=== PATIENT | male | born 1955 | race Caucasian/White ===

== ENCOUNTER 2021-09-17 07:17 | Emergency (ER) | payer OTHER ==
[2021-09-17] MEDS ORDERED: Quelicin Fliptop 200 MG/10 ML IV ONE ×2 (07:18)
[2021-09-17 07:32] LABS: A-aADO2 629; ABG HEMOGLOBIN 13.6; ABG POTASSIUM 4.2 (3.5-5.1); ARTERIAL BLD GAS O2 SATURATION 80.1 % (95-100); ARTERIAL BLOOD GAS BASE EXCESS -5.5 (-2.0-2.0); ARTERIAL BLOOD GAS FIO2 100 %; ARTERIAL BLOOD GAS PCO2 29 mmHg (35-45); CARBOXYHEMOGLOBIN 1.1 % THgb (0.0-6.9); HGB O2 SAT 78.7 g/dF (94-100); Methhemoglobin 0.6 % (1.4-1.5)
[2021-09-17 07:33] LABS: ABG SITE LEFT RADIAL; ALLEN TEST OK? YES; ARTERIAL BLOOD GAS PO2 48 mmHg (75-100)
--- NOTE | 2021-09-17 07:55 | ERPHSYRPT ---
- History of Present Illness Time Seen by Provider: 09/17/21 07:29 Source: patient, EMS Exam Limitations: no limitations Patient Subjective Stated Complaint: Pt diagnosed with covid yesterday and today he was severely SOB and called the medics and his O2 was 59% on room air Triage Nursing Assessment: Pt was brought to the ER by EMS, hypoxic, hype rtensive, tachycardic, tachypnic, denies pain, was 59% on room air and placed on non rebreather and went to 72% and now placed on high flow and is at 81%, pt BP has now went down to 125/69, pulses bounding, pt is wheezing and rattling, skin n/w/d, pt looks better and appears more comfortable than when he came in Timing/Duration: day(s) (1), worse Activities at Onset: none Possible Cause: no prior episodes Modifying Factors: Improves With: deep breath, exertion (worse) Associated Symptoms: denies symptoms Allergies/Adverse Reactions: No Known Drug Allergies Allergy (Verified 09/17/21 07:36) Home Medications: Allopurinol 100 mg [Zyloprim 100 mg] 100 mg PO BID 09/17/21 [History] Amlodipine Besylate 5 mg [Norvasc 5 mg] 5 mg PO BID 09/17/21 [History] Lisinopril 5 mg [Zestril 5 MG] 5 mg PO DAILY 09/17/21 [History] Metoprolol Tartrate 50 mg [Lopressor 50 MG] 50 mg PO BID 09/17/21 [Histo ry] Tamsulosin HCl 0.4 mg [Flomax 0.4 MG] 0.4 mg PO DAILY 09/17/21 [History] Travel Risk - International Travel Have you traveled outside of the country in past 3 weeks: No - Coronavirus Screening Are you exhibiting any of the following symptoms?: No Symptoms: Fever, Cough: New Onset, Shortness of Breath - Vaccine Status Have you recieved a Covid-19 vaccination: No - Review of Systems Constitutional: Fatigue, Malaise Eyes: No Symptoms Ears, Nose, & Throat: No Symptoms Respiratory: Cough, Dyspnea Cardiac: No Symptoms Abdominal/Gastrointestinal: No Symptoms Genitourinary Symptoms: No Symptoms Musculoskeletal: No Symptoms Skin: No Symptoms Neurological: No Symptoms Psychological: No Symptoms Endocrine: No Symptoms Hematologic/Lymphatic: No Symptoms Immunological/Allergic: No Symptoms All Other Systems: Reviewed and Negative - Past Medical History Pertinent Past Medical History: Yes Neurological History: No Pertinent History ENT History: No Pertinent History Cardiac History: Hypertension Respiratory History: No Pertinent History Endocrine Medical History: No Pertinent History Musculoskeletal History: No Pertinent History GI Medical History: No Pertinent History History: No Pertinent History Psycho-Social History: No Pertinent History Male Reproductive Disorders: No Pertinent History Other Medical History: gout - Past Surgical History Past Surgical History: Yes Neuro Surgical History: No Pertinent History Cardiac: No Pertinent History Respiratory: No Pertinent History Gastrointestinal: No Pertinent History Genitourinary: No Pertinent History Musculoskeletal: No Pertinent History, Joint Replacement Male Surgical History: No Pertinent History Other Surgical History: cervical fusion, jose manuel knee replacement - Social History Smoking Status: Never smoker Exposure to second hand smoke: No Drug Use: none Patient Lives Alone: No Significant Family History: no pertinent family hx - Nursing Vital Signs Nursing Vital Signs: Initial Vital Signs Temperature 99.3 F 09/17/21 07:20 Pulse Rate 91 H 09/17/21 07:20 Respiratory Rate 31 H 09/17/21 07:20 Blood Pressure 204/122 09/17/21 07:20 O2 Sat by Pulse Oximetry 72 L 09/17/21 07:20 Pain Scale Pain Intensity 0 - Physical Exam General Appearance: moderate distress, obese Eye Exam: PERRL/EOMI Ears, Nose, Throat Exam: hearing grossly normal, normal ENT inspection, normal pharynx Neck Exam: normal inspection, non-tender, supple, full range of motion Respiratory Exam: diminished breath sounds, crackles/rales, rhonchi, wheezing Cardiovascular/Chest Exam: tachycardia, irregular Abdominal/Gastrointestinal Exam: soft, normal bowel sounds, distention Rectal Exam: deferred Extremity Exam: non-tender Neurologic Exam: alert, oriented x 3, cooperative Skin Exam: normal color, warm, dry SpO2 Interpretation: hypoxic, ABG ordered, O2 applied SpO2: 72 O2 Delivery: BiPap/CPAP Procedures - Intubation Intubation Indications: respiratory distress Intubation Method: orotracheal Tube Size (cm): 8.0 Medications: Fentanyl, Midazolam (Versed), Succinylcholine, Nimbex Endotracheal Tube Confirmation: bilateral breath sounds, positive end tidal CO2, good rise & fall of chest, stable or inc of O2 sat Intubation Complications: no complications Performed By: Biophysics Professor Post Intubation Xray: Yes Progress/X-ray Impression: 09/17/21 17:05 ETT good position. OG tube good position. - Course Nursing assessment & vital signs reviewed: Yes EKG Interpreted by Me: A-fib, NORMAL AXIS, NORMAL INTERVALS, NORMAL QRS, Other (REpeat EKG after tx, sinus tach at 106, no ischemia.) - Radiology Exams Chest X-ray Interpretation: Reviewed by me, Pneumonia (bilateral airspace disease) Ordered Tests: Active Orders 24 hr Category Date Time Status EKG-ER Only STAT Care 09/17/21 07:49 Completed [place] [Catheter-[place]] STAT Care 09/17/21 14:47 Completed IV Insertion STAT Care 09/17/21 07:52 Completed IV Insertion-2nd Peripheral STAT Care 09/17/21 07:52 Completed CHEST 1 VIEW (PORTABLE) Stat Exams 09/17/21 08:12 Completed CHEST 1 VIEW (PORTABLE) Stat Exams 09/17/21 14:24 Completed ABG [ARTERIAL BLOOD GASES] Routine Lab 09/17/21 15:00 Completed ABG [ARTERIAL BLOOD GASES] Routine Lab 09/17/21 22:00 Completed ABG [ARTERIAL BLOOD GASES] Stat Lab 09/17/21 07:32 Completed ABG [ARTERIAL BLOOD GASES] Stat Lab 09/17/21 17:56 Completed ABG [ARTERIAL BLOOD GASES] Urgent Lab 09/17/21 12:57 Completed BLOOD CULTURE Stat Lab 09/17/21 08:05 Received BMP Stat Lab 09/17/21 17:35 Completed CBC W DIFF Stat Lab 09/17/21 07:45 Completed CMP Stat Lab 09/17/21 08:05 Completed CULTURE,URINE Stat Lab 09/17/21 14:48 Ordered D-DIMER QUANTITATIVE Stat Lab 09/17/21 07:49 Completed Lactic Acid Routine Lab 09/17/21 22:00 Completed Lactic Acid Stat Lab 09/17/21 07:34 Completed Lactic Acid Stat Lab 09/17/21 15:00 Completed Lactic Acid Stat Lab 09/17/21 17:56 Completed Manual Differential NC Stat Lab 09/17/21 07:45 Completed NT PRO BNP Stat Lab 09/17/21 08:05 Completed TROPONIN Q3H Lab 09/17/21 08:05 Completed TROPONIN Q3H Lab 09/17/21 11:38 Completed TROPONIN Q3H Lab 09/17/21 13:40 Completed TROPONIN Q3H Lab 09/17/21 17:35 Completed UA W/RFX UR CULTURE Stat Lab 09/17/21 14:48 Completed BiPap/CPAP STAT RT 09/17/21 08:41 Completed Intubate Patient STAT RT 09/17/21 14:35 Completed Oxygen High Flow per RT 50% RT 09/17/21 07:40 Completed Respiratory Therapy Assessment DAILY RT 09/18/21 07:00 Completed Ventilator Management STAT RT 09/17/21 14:24 Completed Medication Summary Discontinued Medications Generic Name Dose Route Start Last Admin Trade Name Freq PRN Reason Stop Dose Admin Cisatracurium Besylate 20 mg 09/17/21 14:00 Cisatracurium 20 Mg/10 Ml Vial IV 09/17/21 14:01 .STK-MED ONE Dexamethasone Sodium Phosphate 6 mg 09/17/21 08:26 09/17/21 08:37 Dexamethasone Sod Phosphate 10 Mg/Ml IV 09/17/21 08:27 6 mg STAT ONE Administration Dexamethasone Sodium Phosphate Confirm 09/17/21 08:36 Dexamethasone Sod Phosphate 10 Mg/Ml Administered 09/17/21 08:37 Dose 10 mg .ROUTE .STK-MED ONE Diltiazem HCl 15 mg 09/17/21 10:14 09/17/21 10:31 Diltiazem Hcl Iv 5 Mg/Ml Vial IV 09/17/21 10:15 15 mg STAT ONE Administration Diltiazem HCl Confirm 09/17/21 10:29 Diltiazem Hcl Iv 5 Mg/Ml Vial Administered 09/17/21 10:30 Dose 50 mg IV .STK-MED ONE Diltiazem HCl 25 mg 09/17/21 11:20 09/17/21 11:27 Diltiazem Hcl Iv 5 Mg/Ml Vial IV 09/17/21 11:21 25 mg STAT ONE Administration Diltiazem HCl 25 mg 09/17/21 14:55 09/17/21 15:05 Diltiazem 25 Mg/5 Ml Vial IV 09/17/21 14:56 25 mg ONCE ONE Administration Diltiazem HCl Confirm 09/17/21 15:04 Diltiazem Hcl Iv 5 Mg/Ml Vial Administered 09/17/21 15:05 Dose 50 mg IV .STK-MED ONE Enoxaparin Sodium 150 mg 09/17/21 10:19 09/17/21 10:32 Enoxaparin Sodium 150 Mg/Ml Syringe SQ 09/17/21 10:20 150 mg 1XONLY ONE Administration Fentanyl Citrate Confirm 09/17/21 13:50 Fentanyl Citrate 100 Mcg/2 Ml* Vial Administered 09/17/21 13:51 Dose 100 mcg .ROUTE .STK-MED ONE Heparin Sodium (Beef Lung) Confirm 09/17/21 18:22 Heparin 5000 Unit/0.5 Ml Syringe Administered 09/17/21 18:23 Dose 5,000 unit .ROUTE .STK-MED ONE Heparin Sodium (Beef Lung) 1,000 unit 09/17/21 18:30 09/17/21 20:00 Heparin 5000 Unit/0.5 Ml Syringe IV 09/17/21 18:31 1,000 unit STAT ONE Administration Lactated Ringer's 1,000 mls @ 999 mls/hr 09/17/21 08:04 09/17/21 10:00 Lactated Ringers IV 09/17/21 09:04 Infused .Q1H1M ONE Infusion Lactated Ringer's Confirm 09/17/21 08:05 Lactated Ringers Administered 09/17/21 08:06 Dose 1,000 mls @ ud IV .STK-MED ONE Sodium Chloride Confirm 09/17/21 13:46 Sodium Chloride 0.9% 1000 Ml Administered 09/17/21 13:47 Dose 1,000 mls @ ud .ROUTE .STK-MED ONE Midazolam HCl 50 mg/ Sodium 250 mls @ 20.412 mls/hr 09/17/21 13:57 09/17/21 17:01 Chloride IV 10/17/21 13:56 0.02 mg/kg/hr .[id number] PRN 15 mls/hr SEDATION Titration Protocol 0.025 MG/KG/HR Cisatracurium Besylate 200 mg/ 200 mls @ 29.393 mls/hr 09/17/21 13:57 09/17/21 21:14 Dextrose IV 10/17/21 13:56 3 mcg/kg/min .Q6H49M PRN 29.393 mls/hr PARALYSIS Administration Protocol 3 MCG/KG/MIN Fentanyl Citrate 1,500 mcg/ 150 mls @ 16.329 mls/hr 09/17/21 13:57 09/17/21 17:01 Sodium Chloride IV 10/17/21 13:56 0.4 mcg/kg/hr .Q9H12M PRN 6.532 mls/hr PAIN Titration Protocol 1 MCG/KG/HR Diltiazem HCl 100 mls @ 10 mls/hr 09/17/21 14:56 09/17/21 15:05 Cardizem Drip 100 Mg/100 Ml D5w IV 10/17/21 14:55 10 mg/hr .Q10H PRN 10 mls/hr HEART RATE/ A-FIB Administration Protocol 10 MG/HR Acetaminophen 1,000 mg in 100 mls @ 400 mls/hr 09/17/21 14:57 09/17/21 15:00 Ofirmev IV 09/17/21 15:11 400 mls/hr 1HRPRIOR ONE Administration Procainamide HCl 1,500 mg/ 103 mls @ 120 mls/hr 09/17/21 16:00 09/17/21 15:53 Dextrose IV 09/17/21 16:51 120 mls/hr STAT ONE Administration Sodium Chloride 1,000 mls @ 999 mls/hr 09/17/21 18:02 09/17/21 19:04 Sodium Chloride 0.9% 1000 Ml IV 09/17/21 19:02 Infused .Q1H1M STA Infusion Sodium Chloride 1,000 mls @ 999 mls/hr 09/17/21 18:23 09/17/21 19:26 Sodium Chloride 0.9% 1000 Ml IV 09/17/21 19:23 Infused .Q1H1M STA Infusion Sodium Chloride Confirm 09/17/21 18:22 Sodium Chloride 0.9% 500 Ml Administered 09/17/21 18:23 Dose 500 mls @ ud IV .STK-MED ONE Sodium Chloride Confirm 09/17/21 18:22 Sodium Chloride 0.9% 1000 Ml Administered 09/17/21 18:23 Dose 1,000 mls @ ud .ROUTE .STK-MED ONE Norepinephrine/Dextrose 8 mg in 250 mls @ 15 mls/hr 09/17/21 18:30 09/17/21 20:18 Norepinephrine 8 Mg/250 Ml-D5w IV 10/17/21 18:29 12 mcg/min .[id number] PRN 22.5 mls/hr HYPOTENSION Titration Protocol 8 MCG/MIN Sodium Chloride 500 mls @ 500 mls/hr 09/17/21 18:30 09/17/21 20:00 Sodium Chloride 0.9% 500 Ml IV 09/17/21 19:29 500 mls/hr .Q1H ONE Administration Sodium Chloride 1,000 mls @ 150 mls/hr 09/17/21 19:45 09/17/21 19:34 Sodium Chloride 0.9% 1000 Ml IV 10/17/21 19:44 150 mls/hr .Q6H40M AMBER Administration Diltiazem HCl Confirm 09/17/21 15:04 Cardizem Drip 100 Mg/100 Ml D5w Administered 09/17/21 15:05 Dose 100 mls @ ud IV .STK-MED ONE Metoprolol Succinate 100 mg 09/18/21 12:55 09/17/21 12:58 Metoprolol Succinate 100 Mg Tablet.Sa PO 09/18/21 12:56 100 mg DAILY ONE Administration Metoprolol Succinate Confirm 09/17/21 12:58 Metoprolol Succinate 25 Mg Xl Tab Administered 09/17/21 12:59 Dose 100 mg .ROUTE .STK-MED ONE Midazolam HCl 15 mg 09/17/21 14:00 Midazolam Hcl 5 Mg/5 Ml Vial .ROUTE 09/17/21 14:01 .STK-MED ONE Succinylcholine Chloride 2 mg 09/17/21 14:00 Succinylcholine Chloride 200mg/10 Ml Vial .ROUTE 09/17/21 14:01 .STK-MED ONE Lab/Rad Data: Laboratory Result Diagrams 09/17/21 07:45 09/17/21 17:35 Laboratory Results 09/17/21 09/17/21 09/17/21 Range/Units 22:00 17:56 17:35 WBC (4.0-10.5) K/mm3 RBC (4.1-5.6) M/mm3 Hgb (12.5-18.0) gm/dl Hct (42-50) % MCV (78-100) fl MCH (26-32) pg MCHC (32-36) g/dl RDW (11.5-14.0) % Plt Count (150-450) K/mm3 MPV (7.5-11.0) fl Absolute Granulocytes (1.4-6.9) Segmented Neutrophils (36.-66.) % Band Neutrophils (0.0-2.0) % Lymphocytes (Manual) (24-44) % Monocytes (Manual) (0.0-12.0) % Platelet Estimate (NORMAL) RBC Morphology D-Dimer (215-500) ng/mL Puncture Site AL RIGHT RADIAL pCO2 50 H 75 H* (35-45) mmHg pO2 60 L 62 L (75-100) mmHg Base Excess -7.4 L -12.2 L (-2.0-2.0) O2 Saturation 89.8 L 85.1 L (94-100) g/dF ABG pH 7.22 L* 7.03 L* (7.35-7.45) ABG HCO3 20.5 L 19.8 L (22-28) ABG O2 Sat (Measured) 91.9 L 87.2 L (95-100) % Ezequiel Test NOT APPLICABLE YES A-a Gradient 591 557 a/A Ratio 0.09 0.10 Hemoglobin 13.1 12.8 Carboxyhemoglobin 1.1 1.1 (0.0-6.9) % THgb Methemoglobin 1.3 L 1.2 L (1.4-1.5) % Potassium 4.8 5.4 H 5.2 H (3.5-5.1) Temperature 37.0 37.0 C POC O2 Flow Rate 100 100 % Vent Mode PCV+ Vent Rate 18 /MIN Tidal Volume 600 cc PEEP 15 14.0 cmH2O Sodium 129 L (137-145) mmol/L Chloride 95 L (98-107) mmol/L Carbon Dioxide 20 L (22-30) mmol/L Anion Gap 18.6 H (5-15) MEQ/L BUN 25 H (9-20) mg/dL Creatinine 1.94 H (0.66-1.25) mg/dL Estimated GFR 37.1 ML/MIN Glucose 285 H (74-106) mg/dL Lactic Acid 1.8 5.0 H (0.4-2.0) Calcium 8.3 L (8.4-10.2) mg/dL Total Bilirubin (0.2-1.3) mg/dL AST (17-59) U/L ALT (0-50) U/L Alkaline Phosphatase (38-126) U/L Troponin I (0.000-0.034) ng/mL NT-Pro-B Natriuret Pep (0-900) pg/mL Serum Total Protein (6.3-8.2) g/dL Albumin (3.5-5.0) g/dL Urine Color (YELLOW) Urine Appearance (CLEAR) Urine pH (5-6) Ur Specific [place] (1.005-1.025) Urine Protein (Negative) Urine Ketones (NEGATIVE) Urine Blood (0-5) Damien/ul Urine Nitrite (NEGATIVE) Urine Bilirubin (NEGATIVE) Urine Urobilinogen (0-1) mg/dL Ur Leukocyte Esterase (NEGATIVE) Urine WBC (Auto) (0-5) /HPF Urine RBC (Auto) (0-2) /HPF U Hyaline Cast (Auto) (0-2) /LPF Triple Phos Crystals (NEGATIVE) /HPF Amorphous Crystals (NEGATIVE) /HPF Urine Mucus (Auto) (NEGATIVE) /HPF Urine Culture Reflexed (NO) Urine Glucose (NEGATIVE) mg/dL 09/17/21 09/17/21 09/17/21 Range/Units 17:35 15:00 15:00 WBC (4.0-10.5) K/mm3 RBC (4.1-5.6) M/mm3 Hgb (12.5-18.0) gm/dl Hct (42-50) % MCV (78-100) fl MCH (26-32) pg MCHC (32-36) g/dl RDW (11.5-14.0) % Plt Count (150-450) K/mm3 MPV (7.5-11.0) fl Absolute Granulocytes (1.4-6.9) Segmented Neutrophils (36.-66.) % Band Neutrophils (0.0-2.0) % Lymphocytes (Manual) (24-44) % Monocytes (Manual) (0.0-12.0) % Platelet Estimate (NORMAL) RBC Morphology D-Dimer (215-500) ng/mL Puncture Site RIGHT RADIAL pCO2 70 H* (35-45) mmHg pO2 57 L (75-100) mmHg Base Excess -7.8 L (-2.0-2.0) O2 Saturation 81.2 L (94-100) g/dF ABG pH 7.12 L* (7.35-7.45) ABG HCO3 22.8 (22-28) ABG O2 Sat (Measured) 82.9 L (95-100) % Ezequiel Test YES A-a Gradient 569 a/A Ratio 0.09 Hemoglobin 13.5 Carboxyhemoglobin 1.3 (0.0-6.9) % THgb Methemoglobin 0.8 L (1.4-1.5) % Potassium 4.6 (3.5-5.1) Temperature 37.0 C POC O2 Flow Rate 100 % Vent Mode Vent Rate /MIN Tidal Volume 600 cc PEEP 12.0 cmH2O Sodium (137-145) mmol/L Chloride (98-107) mmol/L Carbon Dioxide (22-30) mmol/L Anion Gap (5-15) MEQ/L BUN (9-20) mg/dL Creatinine (0.66-1.25) mg/dL Estimated GFR ML/MIN Glucose (74-106) mg/dL Lactic Acid 2.1 H (0.4-2.0) Calcium (8.4-10.2) mg/dL Total Bilirubin (0.2-1.3) mg/dL AST (17-59) U/L ALT (0-50) U/L Alkaline Phosphatase (38-126) U/L Troponin I 0.023 (0.000-0.034) ng/mL NT-Pro-B Natriuret Pep (0-900) pg/mL Serum Total Protein (6.3-8.2) g/dL Albumin (3.5-5.0) g/dL Urine Color (YELLOW) Urine Appearance (CLEAR) Urine pH (5-6) Ur Specific [place] (1.005-1.025) Urine Protein (Negative) Urine Ketones (NEGATIVE) Urine Blood (0-5) Damien/ul Urine Nitrite (NEGATIVE) Urine Bilirubin (NEGATIVE) Urine Urobilinogen (0-1) mg/dL Ur Leukocyte Esterase (NEGATIVE) Urine WBC (Auto) (0-5) /HPF Urine RBC (Auto) (0-2) /HPF U Hyaline Cast (Auto) (0-2) /LPF Triple Phos Crystals (NEGATIVE) /HPF Amorphous Crystals (NEGATIVE) /HPF Urine Mucus (Auto) (NEGATIVE) /HPF Urine Culture Reflexed (NO) Urine Glucose (NEGATIVE) mg/dL 09/17/21 09/17/21 09/17/21 Range/Units 14:48 13:40 12:57 WBC (4.0-10.5) K/mm3 RBC (4.1-5.6) M/mm3 Hgb (12.5-18.0) gm/dl Hct (42-50) % MCV (78-100) fl MCH (26-32) pg MCHC (32-36) g/dl RDW (11.5-14.0) % Plt Count (150-450) K/mm3 MPV (7.5-11.0) fl Absolute Granulocytes (1.4-6.9) Segmented Neutrophils (36.-66.) % Band Neutrophils (0.0-2.0) % Lymphocytes (Manual) (24-44) % Monocytes (Manual) (0.0-12.0) % Platelet Estimate (NORMAL) RBC Morphology D-Dimer (215-500) ng/mL Puncture Site LEFT RADIAL pCO2 31 L (35-45) mmHg pO2 59 L (75-100) mmHg Base Excess -3.4 L (-2.0-2.0) O2 Saturation 90.9 L (94-100) g/dF ABG pH 7.42 (7.35-7.45) ABG HCO3 20.1 L (22-28) ABG O2 Sat (Measured) 93.2 L (95-100) % Ezequiel Test YES A-a Gradient 615 a/A Ratio 0.09 Hemoglobin 12.6 Carboxyhemoglobin 2.5 (0.0-6.9) % THgb Methemoglobin 0.0 L (1.4-1.5) % Potassium 4.6 (3.5-5.1) Temperature 37.0 C POC O2 Flow Rate 100 % Vent Mode AVAPS 550 EPAP 12 Vent Rate /MIN Tidal Volume cc PEEP cmH2O Sodium (137-145) mmol/L Chloride (98-107) mmol/L Carbon Dioxide (22-30) mmol/L Anion Gap (5-15) MEQ/L BUN (9-20) mg/dL Creatinine (0.66-1.25) mg/dL Estimated GFR ML/MIN Glucose (74-106) mg/dL Lactic Acid (0.4-2.0) Calcium (8.4-10.2) mg/dL Total Bilirubin (0.2-1.3) mg/dL AST (17-59) U/L ALT (0-50) U/L Alkaline Phosphatase (38-126) U/L Troponin I < 0.012 (0.000-0.034) ng/mL NT-Pro-B Natriuret Pep (0-900) pg/mL Serum Total Protein (6.3-8.2) g/dL Albumin (3.5-5.0) g/dL Urine Color YELLOW (YELLOW) Urine Appearance SLIGHTLY CLOUDY (CLEAR) Urine pH 7.0 (5-6) Ur Specific [place] 1.023 (1.005-1.025) Urine Protein 100 (Negative) Urine Ketones TRACE (NEGATIVE) Urine Blood NEGATIVE (0-5) Damien/ul Urine Nitrite NEGATIVE (NEGATIVE) Urine Bilirubin NEGATIVE (NEGATIVE) Urine Urobilinogen NEGATIVE (0-1) mg/dL Ur Leukocyte Esterase NEGATIVE (NEGATIVE) Urine WBC (Auto) 6-10 (0-5) /HPF Urine RBC (Auto) 3-5 (0-2) /HPF U Hyaline Cast (Auto) 0-2 (0-2) /LPF Triple Phos Crystals 0-2 (NEGATIVE) /HPF Amorphous Crystals FEW (NEGATIVE) /HPF Urine Mucus (Auto) SLIGHT (NEGATIVE) /HPF Urine Culture Reflexed ORDERED SEPARATELY (NO) Urine Glucose NEGATIVE (NEGATIVE) mg/dL 09/17/21 09/17/21 09/17/21 Range/Units 11:38 08:05 08:05 WBC (4.0-10.5) K/mm3 RBC (4.1-5.6) M/mm3 Hgb (12.5-18.0) gm/dl Hct (42-50) % MCV (78-100) fl MCH (26-32) pg MCHC (32-36) g/dl RDW (11.5-14.0) % Plt Count (150-450) K/mm3 MPV (7.5-11.0) fl Absolute Granulocytes (1.4-6.9) Segmented Neutrophils (36.-66.) % Band Neutrophils (0.0-2.0) % Lymphocytes (Manual) (24-44) % Monocytes (Manual) (0.0-12.0) % Platelet Estimate (NORMAL) RBC Morphology D-Dimer (215-500) ng/mL Puncture Site pCO2 (35-45) mmHg pO2 (75-100) mmHg Base Excess (-2.0-2.0) O2 Saturation (94-100) g/dF ABG pH (7.35-7.45) ABG HCO3 (22-28) ABG O2 Sat (Measured) (95-100) % Ezequiel Test A-a Gradient a/A Ratio Hemoglobin Carboxyhemoglobin (0.0-6.9) % THgb Methemoglobin (1.4-1.5) % Potassium 4.5 (3.5-5.1) Temperature C POC O2 Flow Rate % Vent Mode Vent Rate /MIN Tidal Volume cc PEEP cmH2O Sodium 130 L (137-145) mmol/L Chloride 95 L (98-107) mmol/L Carbon Dioxide 22 (22-30) mmol/L Anion Gap 16.6 H (5-15) MEQ/L BUN 23 H (9-20) mg/dL Creatinine 1.49 H (0.66-1.25) mg/dL Estimated GFR 50.3 ML/MIN Glucose 168 H (74-106) mg/dL Lactic Acid (0.4-2.0) Calcium 9.1 (8.4-10.2) mg/dL Total Bilirubin 0.90 (0.2-1.3) mg/dL AST 86 H (17-59) U/L ALT 95 H (0-50) U/L Alkaline Phosphatase 166 H (38-126) U/L Troponin I < 0.012 < 0.012 (0.000-0.034) ng/mL NT-Pro-B Natriuret Pep 3270 H (0-900) pg/mL Serum Total Protein 7.8 (6.3-8.2) g/dL Albumin 4.0 (3.5-5.0) g/dL Urine Color (YELLOW) Urine Appearance (CLEAR) Urine pH (5-6) Ur Specific [place] (1.005-1.025) Urine Protein (Negative) Urine Ketones (NEGATIVE) Urine Blood (0-5) Damien/ul Urine Nitrite (NEGATIVE) Urine Bilirubin (NEGATIVE) Urine Urobilinogen (0-1) mg/dL Ur Leukocyte Esterase (NEGATIVE) Urine WBC (Auto) (0-5) /HPF Urine RBC (Auto) (0-2) /HPF U Hyaline Cast (Auto) (0-2) /LPF Triple Phos Crystals (NEGATIVE) /HPF Amorphous Crystals (NEGATIVE) /HPF Urine Mucus (Auto) (NEGATIVE) /HPF Urine Culture Reflexed (NO) Urine Glucose (NEGATIVE) mg/dL 09/17/21 09/17/21 09/17/21 Range/Units 07:49 07:45 07:34 WBC 17.1 H (4.0-10.5) K/mm3 RBC 4.74 (4.1-5.6) M/mm3 Hgb 13.6 (12.5-18.0) gm/dl Hct 39.8 L (42-50) % MCV 84.0 (78-100) fl MCH 28.7 (26-32) pg MCHC 34.2 (32-36) g/dl RDW 14.3 H (11.5-14.0) % Plt Count 418 (150-450) K/mm3 MPV 11.1 H (7.5-11.0) fl Absolute Granulocytes 16.21 H (1.4-6.9) Segmented Neutrophils 83 H (36.-66.) % Band Neutrophils 11 H (0.0-2.0) % Lymphocytes (Manual) 4 L (24-44) % Monocytes (Manual) 2 (0.0-12.0) % Platelet Estimate NORMAL (NORMAL) RBC Morphology NORMAL D-Dimer 2415 H* (215-500) ng/mL Puncture Site pCO2 (35-45) mmHg pO2 (75-100) mmHg Base Excess (-2.0-2.0) O2 Saturation (94-100) g/dF ABG pH (7.35-7.45) ABG HCO3 (22-28) ABG O2 Sat (Measured) (95-100) % Ezequiel Test A-a Gradient a/A Ratio Hemoglobin Carboxyhemoglobin (0.0-6.9) % THgb Methemoglobin (1.4-1.5) % Potassium (3.5-5.1) Temperature C POC O2 Flow Rate % Vent Mode Vent Rate /MIN Tidal Volume cc PEEP cmH2O Sodium (137-145) mmol/L Chloride (98-107) mmol/L Carbon Dioxide (22-30) mmol/L Anion Gap (5-15) MEQ/L BUN (9-20) mg/dL Creatinine (0.66-1.25) mg/dL Estimated GFR ML/MIN Glucose (74-106) mg/dL Lactic Acid 3.4 H (0.4-2.0) Calcium (8.4-10.2) mg/dL Total Bilirubin (0.2-1.3) mg/dL AST (17-59) U/L ALT (0-50) U/L Alkaline Phosphatase (38-126) U/L Troponin I (0.000-0.034) ng/mL NT-Pro-B Natriuret Pep (0-900) pg/mL Serum Total Protein (6.3-8.2) g/dL Albumin (3.5-5.0) g/dL Urine Color (YELLOW) Urine Appearance (CLEAR) Urine pH (5-6) Ur Specific [place] (1.005-1.025) Urine Protein (Negative) Urine Ketones (NEGATIVE) Urine Blood (0-5) Damien/ul Urine Nitrite (NEGATIVE) Urine Bilirubin (NEGATIVE) Urine Urobilinogen (0-1) mg/dL Ur Leukocyte Esterase (NEGATIVE) Urine WBC (Auto) (0-5) /HPF Urine RBC (Auto) (0-2) /HPF U Hyaline Cast (Auto) (0-2) /LPF Triple Phos Crystals (NEGATIVE) /HPF Amorphous Crystals (NEGATIVE) /HPF Urine Mucus (Auto) (NEGATIVE) /HPF Urine Culture Reflexed (NO) Urine Glucose (NEGATIVE) mg/dL 09/17/21 Range/Units 07:32 WBC (4.0-10.5) K/mm3 RBC (4.1-5.6) M/mm3 Hgb (12.5-18.0) gm/dl Hct (42-50) % MCV (78-100) fl MCH (26-32) pg MCHC (32-36) g/dl RDW (11.5-14.0) % Plt Count (150-450) K/mm3 MPV (7.5-11.0) fl Absolute Granulocytes (1.4-6.9) Segmented Neutrophils (36.-66.) % Band Neutrophils (0.0-2.0) % Lymphocytes (Manual) (24-44) % Monocytes (Manual) (0.0-12.0) % Platelet Estimate (NORMAL) RBC Morphology D-Dimer (215-500) ng/mL Puncture Site LEFT RADIAL pCO2 29 L (35-45) mmHg pO2 48 L* (75-100) mmHg Base Excess -5.5 L (-2.0-2.0) O2 Saturation 78.7 L (94-100) g/dF ABG pH 7.40 (7.35-7.45) ABG HCO3 18.0 L (22-28) ABG O2 Sat (Measured) 80.1 L (95-100) % Ezequiel Test YES A-a Gradient 629 a/A Ratio 0.07 Hemoglobin 13.6 Carboxyhemoglobin 1.1 (0.0-6.9) % THgb Methemoglobin 0.6 L (1.4-1.5) % Potassium 4.2 (3.5-5.1) Temperature 37.0 C POC O2 Flow Rate 100 % Vent Mode Vent Rate /MIN Tidal Volume cc PEEP cmH2O Sodium (137-145) mmol/L Chloride (98-107) mmol/L Carbon Dioxide (22-30) mmol/L Anion Gap (5-15) MEQ/L BUN (9-20) mg/dL Creatinine (0.66-1.25) mg/dL Estimated GFR ML/MIN Glucose (74-106) mg/dL Lactic Acid (0.4-2.0) Calcium (8.4-10.2) mg/dL Total Bilirubin (0.2-1.3) mg/dL AST (17-59) U/L ALT (0-50) U/L Alkaline Phosphatase (38-126) U/L Troponin I (0.000-0.034) ng/mL NT-Pro-B Natriuret Pep (0-900) pg/mL Serum Total Protein (6.3-8.2) g/dL Albumin (3.5-5.0) g/dL Urine Color (YELLOW) Urine Appearance (CLEAR) Urine pH (5-6) Ur Specific [place] (1.005-1.025) Urine Protein (Negative) Urine Ketones (NEGATIVE) Urine Blood (0-5) Damien/ul Urine Nitrite (NEGATIVE) Urine Bilirubin (NEGATIVE) Urine Urobilinogen (0-1) mg/dL Ur Leukocyte Esterase (NEGATIVE) Urine WBC (Auto) (0-5) /HPF Urine RBC (Auto) (0-2) /HPF U Hyaline Cast (Auto) (0-2) /LPF Triple Phos Crystals (NEGATIVE) /HPF Amorphous Crystals (NEGATIVE) /HPF Urine Mucus (Auto) (NEGATIVE) /HPF Urine Culture Reflexed (NO) Urine Glucose (NEGATIVE) mg/dL - Progress Progress: improved Air Movement: good Progress Note: Complicated patient with COVID pneumonia and progressive respiratory failure. Multiple means of oxygenating tried, finally had to intubate, no complications. Also, new onset A-fib with RVR, no ischemia. Could not get rate control with c ardizem gave procainamide, BP dropped, drips stopped. Cardioverted since unstable. One sync. shock at 100 J restored NSR. No beds available at this time in the hospital here, trying other hospitals. 09/17/21 17:07 09/17/21 19:26 Needed to start levophed drip to keep MAP above 65. Fluid bolus as well. Vent settings adjusted per RT discussion with the completions engineer. Sat. over 90%. Accepted in transfer by Dr. Ivy at [facility] in [facility]. Stable for transfer. Blood Culture(s) Obtained: No Antibiotics given: No - Departure Departure Disposition: Transfer Clinical Impression: Pneumonia due to COVID-19 virus, Atrial fibrillation with rapid ventricular response Respiratory failure with hypoxia Qualifiers: Chronicity: acute Qualified Code(s): J96.01 - Acute respiratory failure with hypoxia Condition: Stable Critical Care Time: Yes Critical Care Time(excluding separately billable procedures): Critical 165-194 mins Referrals: DOCTOR,NO FAMILY [Primary Care Provider] - Follow up/PCP as directed
[2021-09-17] MEDS ORDERED: Lactated Ringers 1,000 ML IV ONE ×2 (08:04→08:05)
[2021-09-17 08:14] LABS: Hematocrit 39.8 % (42-50); Hemoglobin 13.6 gm/dl (12.5-18.0); Mean Corpuscular Hemoglobin 28.7 pg (26-32); Mean Corpuscular Hgb Concent. 34.2 g/dl (32-36); Mean Platelet Volume 11.1 fl (7.5-11.0); Platelet Count 418 K/mm3 (150-450); Red Blood Count 4.74 M/mm3 (4.1-5.6); Red Cell Distribution Width 14.3 % (11.5-14.0); White Blood Count 17.1 K/mm3 (4.0-10.5)
[2021-09-17] MEDS ORDERED: DECADRON 10MG INJ. IV ONE (08:26)
[2021-09-17] MEDS ORDERED: DECADRON 10MG INJ. ONE (08:36)
[2021-09-17 08:39] LABS: ANION GAP 16.6 MEQ/L (5-15); BILIRUBIN,TOTAL 0.9 mg/dL (0.2-1.3); Calcium 9.1 mg/dL (8.4-10.2); Creatinine 1 1.49 mg/dL (0.66-1.25); EST GLOMERULAR FILTRATION RATE 50.3 ML/MIN; Potassium 4.5 mmol/L (3.5-5.1); Total Protein 7.8 g/dL (6.3-8.2)
--- NOTE | 2021-09-17 09:18 | XRAY ---
Indication: Short of breath. Suspect Covid 19. Comparison: None Portable apical lordotic chest slightly underinflated with moderate/significant diffuse bilateral airspace disease without consolidation/large effusion. Remaining heart and bony thorax unremarkable with incidental lower cervical fusion hardware.
[2021-09-17 09:55] LABS: BAND 11 % (0.0-2.0); Lymphocytes 4 % (24-44); Monocyte 2 % (0.0-12.0); Neutrophils 83 % (36.-66.); Platelet Estimate NORMAL (NORMAL); Total Cells Counted 100
[2021-09-17 09:56] LABS: Absolute Neutrophil Ct (ANC) 16.21 (1.4-6.9)
[2021-09-17] MEDS ORDERED: Cardizem IV 50 MG/10 ML IV ONE ×4 (10:14→15:04)
[2021-09-17] MEDS ORDERED: ENOXAPARIN SODIUM SQ ONE (10:19)
[2021-09-17] MEDS ORDERED: Toprol-Xl 25MG Tablets ONE (12:58)
[2021-09-17 13:17] LABS: A-aADO2 615; ABG HEMOGLOBIN 12.6; ABG POTASSIUM 4.6 (3.5-5.1); ABG SITE LEFT RADIAL; ALLEN TEST OK? YES; ARTERIAL BLD GAS O2 SATURATION 93.2 % (95-100); ARTERIAL BLOOD GAS BASE EXCESS -3.4 (-2.0-2.0); ARTERIAL BLOOD GAS FIO2 100 %; ARTERIAL BLOOD GAS PCO2 31 mmHg (35-45); ARTERIAL BLOOD GAS PO2 59 mmHg (75-100); ARTERIAL BLOOD GAS VENT MODE AVAPS 550 EPAP 12; ARTERIAL BLOOD GAS pH 7.42 (7.35-7.45); CARBOXYHEMOGLOBIN 2.5 % THgb (0.0-6.9); HCO3- 20.1 (22-28); HGB O2 SAT 90.9 g/dF (94-100)
[2021-09-17] MEDS ORDERED: Sodium Chloride 0.9% 1000 ML 1,000 ML ONE ×3 (13:46→19:33)
[2021-09-17] MEDS ORDERED: SUBLIMAZE 100 MCG/2 ML ONE (13:50)
[2021-09-17] MEDS ORDERED: FENTANYL 500 MCG/10 ML VIAL 1,500 MCG in Sodium Chloride 0.9% 150 ML 120 ML IV PRN (13:57)
[2021-09-17] MEDS ORDERED: VERSED 5 MG/5 ML ONE (14:00)
[2021-09-17] MEDS ORDERED: Nimbex 20MG/10 Ml Vial (HIGH RISK MED) IV ONE (14:00)
[2021-09-17] MEDS ORDERED: Quelicin Fliptop 200 MG/10 ML ONE (14:00)
[2021-09-17] MEDS: Versed 50 MG/ 10 Ml MDV*** 50 MG in Sodium Chloride 0.9% 250 ML 240 ML IV PRN ×2 (14:10→16:35)
[2021-09-17] MEDS: Nimbex 200MG/20 Ml MDV (HIGH RISK MED)** 200 MG in Dextrose 5%/Water IV Soln. 250 ML 18... IV PRN ×2 (14:16→21:14)
[2021-09-17] MEDS ORDERED: DILTIAZEM HCL 25 MG/5 ML VIAL IV ONE (14:55)
[2021-09-17] MEDS ORDERED: CARDIZEM DRIP 100 MG/100 ML D5W 100 ML IV PRN (14:56)
[2021-09-17] MEDS ORDERED: OFIRMEV 1,000 MG/100 ML ML IV ONE (14:57)
--- NOTE | 2021-09-17 15:00 | XRAY ---
Indication: Endotracheal and NG tube placement. Comparison: Taken earlier in the day. Portable chest demonstrates new endotracheal tube tip 5 cm above luis antonio and new NG tube tip in stomach. Remaining chest demonstrates worsening marked diffuse bilateral airspace disease. Heart not enlarged.
[2021-09-17] MEDS ORDERED: CARDIZEM DRIP 100 MG/100 ML D5W 100 ML IV ONE (15:04)
[2021-09-17] MEDS ORDERED: PROCAINAMIDE IV ONE (16:00)
[2021-09-17] MEDS ORDERED: DEXTROSE IV ONE (16:00)
[2021-09-17 16:05] LABS: Amourphous Crystal FEW /HPF (NEGATIVE); Appearance SLIGHTLY CLOUDY (CLEAR); Bilirubin NEGATIVE (NEGATIVE); Blood NEGATIVE Ery/ul (0-5); Glucose NEGATIVE (NEGATIVE); Hyaline Casts 0-2 /LPF (0-2); Ketones TRACE (NEGATIVE); Leukocyte Esterase NEGATIVE (NEGATIVE); Mucus SLIGHT /HPF (NEGATIVE); Nitrite NEGATIVE (NEGATIVE); Protein,Urine Dip 100 (Negative); Specific Gravity 1.023 (1.005-1.025); Triple Phosphate Crystals 0-2 /HPF (NEGATIVE); Urobilinogen NEGATIVE mg/dL (0-1)
[2021-09-17] MEDS ORDERED: Sodium Chloride 0.9% 1000 ML 1,000 ML IV STA ×2 (18:02→18:23)
[2021-09-17 18:03] LABS: A-aADO2 557; ABG HEMOGLOBIN 12.8; ABG POTASSIUM 5.4 (3.5-5.1); ARTERIAL BLD GAS O2 SATURATION 87.2 % (95-100); ARTERIAL BLD GAS TIDAL VOLUME 600 cc; ARTERIAL BLOOD GAS BASE EXCESS -12.2 (-2.0-2.0); ARTERIAL BLOOD GAS FIO2 100 %; ARTERIAL BLOOD GAS PO2 62 mmHg (75-100); CARBOXYHEMOGLOBIN 1.1 % THgb (0.0-6.9); HCO3- 19.8 (22-28); HGB O2 SAT 85.1 g/dF (94-100); Methhemoglobin 1.2 % (1.4-1.5)
[2021-09-17 18:04] LABS: ARTERIAL BLOOD GAS PCO2 75 mmHg (35-45); ARTERIAL BLOOD GAS pH 7.03 (7.35-7.45)
[2021-09-17 18:05] LABS: ABG SITE RIGHT RADIAL; ALLEN TEST OK? YES
[2021-09-17 18:06] LABS: A-aADO2 569; ABG HEMOGLOBIN 13.5; ABG POTASSIUM 4.6 (3.5-5.1); ARTERIAL BLD GAS O2 SATURATION 82.9 % (95-100); ARTERIAL BLD GAS TIDAL VOLUME 600 cc; ARTERIAL BLOOD GAS BASE EXCESS -7.8 (-2.0-2.0); ARTERIAL BLOOD GAS FIO2 100 %; ARTERIAL BLOOD GAS PO2 57 mmHg (75-100); CARBOXYHEMOGLOBIN 1.3 % THgb (0.0-6.9); HCO3- 22.8 (22-28); HGB O2 SAT 81.2 g/dF (94-100); Methhemoglobin 0.8 % (1.4-1.5)
[2021-09-17 18:07] LABS: ABG SITE RIGHT RADIAL; ALLEN TEST OK? YES; ARTERIAL BLOOD GAS PCO2 70 mmHg (35-45); ARTERIAL BLOOD GAS pH 7.12 (7.35-7.45)
[2021-09-17 18:15] LABS: ANION GAP 18.6 MEQ/L (5-15); Calcium 8.3 mg/dL (8.4-10.2); Creatinine 1 1.94 mg/dL (0.66-1.25); EST GLOMERULAR FILTRATION RATE 37.1 ML/MIN; Potassium 5.2 mmol/L (3.5-5.1)
[2021-09-17] MEDS ORDERED: Heparin 5000 UNITS/0.5 ML (HIGH RISK MED) ONE (18:22)
[2021-09-17] MEDS ORDERED: Sodium Chloride 0.9% 500 ML 500 ML IV ONE ×2 (18:22→18:30)
[2021-09-17] MEDS ORDERED: Heparin 5000 UNITS/0.5 ML (HIGH RISK MED) IV ONE (18:30)
[2021-09-17] MEDS ORDERED: NOREPINEPHRINE 8 MG/250 ML-D5W 8 MG/250 ML PLAST..BAG IV PRN (18:30)
[2021-09-17] MEDS ORDERED: Sodium Chloride 0.9% 1000 ML 1,000 ML IV SCH (19:45)
[2021-09-17 22:22] LABS: A-aADO2 591; ABG HEMOGLOBIN 13.1; ABG POTASSIUM 4.8 (3.5-5.1); ARTERIAL BLD GAS O2 SATURATION 91.9 % (95-100); ARTERIAL BLOOD GAS BASE EXCESS -7.4 (-2.0-2.0); ARTERIAL BLOOD GAS FIO2 100 %; ARTERIAL BLOOD GAS PCO2 50 mmHg (35-45); ARTERIAL BLOOD GAS PO2 60 mmHg (75-100); CARBOXYHEMOGLOBIN 1.1 % THgb (0.0-6.9); HCO3- 20.5 (22-28); HGB O2 SAT 89.8 g/dF (94-100); Lactic Acid 1.8 (0.4-2.0); Methhemoglobin 1.3 % (1.4-1.5)
[2021-09-17 22:23] LABS: ABG SITE AL; ARTERIAL BLOOD GAS PEEP 15 cmH2O; ARTERIAL BLOOD GAS VENT MODE PCV+; ARTERIAL BLOOD GAS VENT RATE 18 /MIN; ARTERIAL BLOOD GAS pH 7.22 (7.35-7.45)
[2021-09-17 23:33] VITALS: BP 105/48; PULSE 88
[2021-09-18 01:59] VITALS: O2SAT 72
[2021-09-18] MEDS ORDERED: Toprol Xl 100 MG PO ONE (12:55)
--- NOTE | 2021-09-20 09:12 | CONS ---
CONSULT DATE: 09/17/2021 REASON FOR CONSULT: Respiratory failure, COVID positive. HISTORY: The history is obtained from reviewing emergency room records. Filiberto Saldana is a 66-year-old male who presented to [facility] Emergency Room with complaints of shortness of breath. The patient tested positive for COVID. He declined rapidly while being in the emergency room. Initially he was placed on high flow followed by noninvasive ventilation. However, the patient was unable to maintain oxygenation and continued to show signs of air hunger. He was intubated in the emergency room. Post-intubation, ABG's have shown marginal improvement in oxygenation although he still remains acidemic. He has received 2 amps of bicarb as well. His pH has shown improvement compared to earlier blood gas. At the time of my evaluation, the patient remains in atrial fibrillation with rapid ventricular rate. He was treated with IV Cardizem with some improvement in heart rate and currently the heart rate is in the range of 115 beats/minute. He is able to maintain hemodynamics. He was started on sedation along with paralytics to minimize barotrauma. PAST MEDICAL/SURGICAL HISTORY: I do not have any past medical or surgical history available although it appears clinically the patient has had bilateral total knee replacements with both scars appear relatively fresh. MEDICATIONS: Home and current medications are reviewed. ALLERGIES: NKDA. PHYSICAL EXAMINATION: This is a middle age male intubated, sedated, chemically paralyzed. Current temperature is 100.6F, heart rate 128, blood pressure 115/76. Saturating 80 to 82%. HEENT: Normocephalic. Oral exam limited. ET tube and OG tube are in place. NECK: Supple. CVS: First and second heart sounds are tachycardia and irregular. RESPIRATORY: Shows diminished breath sounds, posterior crackles are heard. ABDOMEN: Obese. : Blackwood catheter in place. EXTREMITIES: Lower extremities show no significant no edema. Bilateral knee replacement scars are present. LABORATORY DATA AND TESTS: Chest x-ray reviewed. White count 17.1, hemoglobin 13.6, hematocrit 39.8, PLT count 418,000. D-dimer is 2415. Sodium 130, potassium 4.5, chloride 95, bicarb 22, glucose 168, BUN 23, creatinine 1.49. Troponin I negative. ABG reviewed. Lactic acid 3.4. ASSESSMENT: This is a 66 year old male admitted with: 1) Acute severe hypoxic respiratory failure. 2) COVID-19 infection with viral pneumonia. 3) Likely sepsis with low grade fever and elevated lactic acid. 4) Acute renal insufficiency. 5) Acidemia secondary to above. 6) Obesity. 7) Atrial fibrillation with rapid ventricular rate. 8) Positive D-dimer. RECOMMENDATIONS: 1) Continue mechanical ventilation. 2) Continue sedation and analgesics as well as paralytics to minimize barotrauma. 3) The patient was switched to pressure control ventilation with inspiratory pressure of 20, PEEP of 15, respiratory rate of 16, FIO2 of 100% and IV ratio of 1:1. Repeat blood gases have shown marginal improvement in oxygenation. 4) The patient will benefit from IV Remdesivir along with oral Olumiant, steroids along with coverage with antibiotic given temperature and elevated lactic acid level. 5) Continue hydration. 6) Monitor urinary output closely. 7) Full dose anticoagulation not only for positive D-dimer but also for atrial fibrillation. 8) The patient has been started on Cardizem drip to control ventricular rate. 9) Echocardiogram and venous Doppler's. 10) The patient will benefit from pronation therapy. [facility] to see if a transfer would be feasible to offer pronation therapy as well. At this point the patient's condition remains critical. PROGNOSIS: Guarded at best. No family members were available. However, these recommendations were discussed with [facility] staff. I will be available as needed. Thank you for allowing me to participate in the care of patient.
== END 2021-09-18 00:40 | disposition short-term general hospital (02) ==
LOC: ED 07:17
DX: U07.1 COVID-19 (principal); J12.82 Pneumonia due to coronavirus disease 2019; J96.01 Acute respiratory failure with hypoxia; I48.20 Chronic atrial fibrillation, unspecified; I10 Essential (primary) hypertension
CPT/HCPCS: 31500; 36000; 36415; 36600; 51702; 71045; 80048; 80053; 81001; 82375; 82803; 83605; 83880; 84484; 85025; 85379; 87040; 87086; 93005; 94002; 96360; 96372; 96374; 96375; 96376; 99285; 99291; 99292; J0330; J1100; J1644; J1650; J2250; J2690; J3010; A9270-GY